=== PATIENT | male | born 1995 | race Caucasian/White ===

== ENCOUNTER 2017-09-03 09:01 | Emergency (ER) | payer OTHER ==
[~2017-09-03] VITALS: Ht 165.1 cm; Wt 62.0 kg
[2017-09-03 09:09] VITALS: BP 140/88
[2017-09-03] MEDS ORDERED: SILVER SULF. CRM 1% , 25GM ONE (09:39)
[2017-09-03] MEDS ORDERED: SILVER SULF. CRM 1% , 25GM TP ONE (10:00)
== END 2017-09-03 10:10 | disposition home or self-care (01) ==
LOC: ED 09:30
DX: T24.221A Burn of second degree of right knee, initial encounter (principal); T31.0 Burns involving less than 10% of body surface; F41.1 Generalized anxiety disorder; X08.8XXA Exposure to other specified smoke, fire and flames, initial encounter; Y93.89 Activity, other specified; Y99.8 Other external cause status; Y92.009 Unspecified place in unspecified non-institutional (private) residence as the place of occurrence of the external cause
CPT/HCPCS: 16025; 99284

== ENCOUNTER 2017-09-25 18:07 | Emergency (ER) | payer OTHER ==
[~2017-09-25] VITALS: Ht 167.6 cm; Wt 62.6 kg
[2017-09-25 18:09] VITALS: BP 142/90
[2017-09-25] MEDS ORDERED: BACITRACIN ZINC OINT 500U/GM, 0.9 GM ONE (20:01)
== END 2017-09-25 20:31 | disposition home or self-care (01) ==
LOC: ED 20:05
DX: T24.221A Burn of second degree of right knee, initial encounter (principal); T31.0 Burns involving less than 10% of body surface; X08.8XXA Exposure to other specified smoke, fire and flames, initial encounter; Y93.89 Activity, other specified; Y92.89 Other specified places as the place of occurrence of the external cause; Y99.8 Other external cause status
CPT/HCPCS: 99283